=== PATIENT | male | born 1975 | race Caucasian/White ===

== ENCOUNTER 2017-07-20 10:31 | Day surgery (SDC) | payer BC ==
[2017-07-20] MEDS ORDERED: Lidocaine 1% 30 ML SDV ONE (11:16)
[2017-07-20] MEDS ORDERED: Lidocaine 1% with EPINEPHrine 1:100,000 20 ML MDV ONE (11:16)
--- NOTE | 2017-07-20 11:41 | PCM.PREANE ---
Preanesthetic Assessment - Anesthesia/Transfusion/Family Hx Anesthesia History: Prior Anesthesia Without Reaction Family History of Anesthesia Reaction: No Transfusion History: No Prior Transfusion(s) - Review of Systems General: No Symptoms Pulmonary: Cough (Smoker, 1ppd, cough in the morning. ) Cardiovascular: No Symptoms Gastrointestinal: No Symptoms Neurological: No Symptoms Other: Reports: None - Physical Assessment NPO Status Date: 07/19/17 NPO Status Time: 20:00 O2 Sat by Pulse Oximetry: 96 Respiratory Rate: 18 Vital Signs: Last Vital Signs Temp 36.3 C 07/20/17 10:40 Pulse 77 07/20/17 10:40 Resp 18 07/20/17 10:40 BP 147/97 H 07/20/17 10:40 Pulse Ox 96 07/20/17 10:40 Height: 1.96 m Weight: 145.603 kg ASA Class: 2 Mental Status: Alert & Oriented x3 Airway Class: Mallampati = 2 Dentition: Reports: Caries (Worn, poor condition, black/brown in color.) Thyro-Mental Finger Breadths: 3 Mouth Opening Finger Breadths: 3 ROM/Head Extension: Full Lungs: Clear to Auscultation, Normal Respiratory Effort Cardiovascular: Regular Rate, Regular Rhythm - Allergies Allergies/Adverse Reactions: Allergies Allergy/AdvReac Type Severity Reaction Status Date / Time amoxicillin Allergy Nausea and Verified 07/20/17 11:30 Vomiting ciprofloxacin [From Cipro] Allergy Nausea and Verified 07/20/17 11:30 Vomiting ciprofloxacin HCl Allergy Nausea and Verified 07/20/17 11:30 [From Cipro] Vomiting Penicillins Allergy Swollen Verified 07/20/17 11:30 Tongue - Acknowledgements Anesthesia Type Planned: General Anesthesia Pt an Appropriate Candidate for the Planned Anesthesia: Yes Alternatives and Risks of Anesthesia Discussed w Pt/Guardian: Yes Pt/Guardian Understands and Agrees with Anesthesia Plan: Yes PreAnesthesia Questionnaire - Past Health History Medical/Surgical History: Denies Medical/Surgical History - Past Surgical History GI Surgical History: Reports: EGD - SUBSTANCE USE Smoking Status *Q: Current Every Day Smoker Recreational Drug Use History: Yes Recreational Drug Type: Reports: Marijuana/Hashish, Methamphetamine - HOME MEDS Home Medications: Home Meds . [No Known Home Meds] 08/05/14 [History] - CURRENT (IN HOUSE) MEDS Current Meds: Current Medications Discontinued Medications Lidocaine HCl (Xylocaine-Mpf 1%) Confirm Administered Dose 30 ml .ROUTE .STK- MED ONE Stop: 07/20/17 11:17 Lidocaine/Epinephrine (Xylocaine 1% With Epinephrine 1:100,000) Confirm Administered Dose 20 ml .ROUTE .STK-MED ONE Stop: 07/20/17 11:17
[2017-07-20] MEDS ORDERED: Succinylcholine/Normal Saline 100 MG/5 ML Syringe ONE (12:07)
[2017-07-20] MEDS ORDERED: Midazolam 1 MG/ML 2 ML SDV ONE ×2 (12:07→13:08)
[2017-07-20] MEDS ORDERED: fentaNYL 250 MCG/5 ML SDV ONE (12:07)
[2017-07-20] MEDS ORDERED: Lidocaine 1% 4 ML ONE (12:07)
[2017-07-20] MEDS ORDERED: Propofol 200 MG/20 ML SDV ONE ×2 (12:07→12:42)
[2017-07-20] MEDS ORDERED: Lactated Ringers 1,000 ML ONE (12:07)
[2017-07-20] MEDS ORDERED: Ketamine 500 mg/10 ML MDV ONE (12:32)
[2017-07-20] MEDS ORDERED: HYDROmorphone 1 MG/ML Syringe ONE (12:36)
[2017-07-20] MEDS ORDERED: Sodium Chloride 0.9% 10 ML Syringe FLUSH PRN (12:46)
[2017-07-20] MEDS ORDERED: Lidocaine 1%/Sod Bicarbonate in NS 8.4% 1 ML Syringe IDERM PRN (12:46)
[2017-07-20] MEDS ORDERED: Lactated Ringers 1,000 ML IV SCH (13:00)
[2017-07-20] MEDS ORDERED: Albuterol 6.7 GM Inhaler INH ONE (13:07)
--- NOTE | 2017-07-20 13:26 | PCM.POSTAN ---
POST ANESTHESIA ASSESSMENT - MENTAL STATUS Mental Status: Alert - VITAL SIGNS Pulse Rate: 98 SaO2: 100 Resp Rate: 16 Blood Pressure: 137/90 Temperature: 36.8 C - RESPIRATORY Respiratory Status: Respiratory Rate WNL, Airway Patent, O2 Saturation Stable ( despite lots of coughing and secretions ) - CARDIOVASCULAR CV Status: Pulse Rate WNL, Blood Pressure Stable - GASTROINTESTINAL GI Status: No Symptoms - PAIN Pain Score: 7 (treated ) - POST OP HYDRATION Hydration Status: Adequate & Stable
--- NOTE | 2017-07-20 13:54 | PCM.OPNOTE ---
- General Post-Op/Procedure Note Date of Surgery/Procedure: 07/20/17 Operative Procedure(s): excision of lipoma on the back of the neck Pre Op Diagnosis: lipoma back of neck Post-Op Diagnosis: Same Anesthesia Technique: General ET Tube Primary Surgeon: Brendan Florez EBL in mLs: 25 Complications: None Condition: Good
[2017-07-20] MEDS ORDERED: Acetaminophen/HYDROcodone 325-5 MG Tab PO PRN (13:59)
[2017-07-20 15:03] VITALS: BP 157/94
--- NOTE | 2017-07-23 07:41 | OR ---
DATE OF OPERATION: 07/20/2017 SURGEON: Brendan Florez MD PREOPERATIVE DIAGNOSIS: 10 cm lipoma, back of the neck. POSTOPERATIVE DIAGNOSIS: 10 cm lipoma, back of the neck. OPERATION PERFORMED: Excision done under general anesthetic. ESTIMATED BLOOD LOSS: About 25 mL. DESCRIPTION OF PROCEDURE: The patient was taken to the operating room, placed in a supine position, connected to monitoring equipment, given a general anesthetic and intubated. SCDs were placed and the patient was then placed in the left lateral position with an axillary roll. The posterior neck was prepped with Betadine, draped off in a sterile fashion. The skin was anesthetized with 1% Xylocaine. Transverse incision was made, carried down by sharp dissection to lipoma. By sharp dissection, superior and inferior flaps developed, and lipoma was removed and taken off the posterior fascia. Bleeding points were then suture ligated with 3- 0 Vicryl suture. The skin was then trimmed and the deep subcuticular tissue was brought together with interrupted 2-0 Vicryl suture and this was closed over a Aurelio-Reese drain, brought out through a separate stab wound in the incision. The subcuticular tissue was then brought together with a running 3-0 Vicryl suture and amaury were used to approximate the skin. The drain was then closed with 4-0 Prolene suture. Sterile dressing placed. The patient tolerated the procedure and sent to recovery room in a stable condition. ANESTHESIA: ROBERT /[id number]
--- NOTE | 2017-08-08 10:25 | OR ---
DATE OF OPERATION: 07/20/2017 SURGEON: Brendan Florez MD ADDENDUM: A lipoma removed from the neck measured 8 cm across, that would include margin and lesion. MMODAL /[id number]
== END 2017-07-20 15:06 | disposition home or self-care (01) ==
LOC: JD.SDS 10:31
PROVIDERS: ATTEND Surgery
DX: D17.0 Benign lipomatous neoplasm of skin and subcutaneous tissue of head, face and neck (principal); Z88.0 Allergy status to penicillin; Z88.1 Allergy status to other antibiotic agents; F17.210 Nicotine dependence, cigarettes, uncomplicated
CPT/HCPCS: 21552; A9270; J0330; J1170; J2250; J3010; J7120; 00300; J2001; J2704

== ENCOUNTER 2023-10-18 03:04 | Emergency (ER) | payer BC ==
[2023-10-18] MEDS: Ketorolac 60 MG/2 ML SDV IM ONE (03:50)
[2023-10-18] MEDS: Triamcinolone Acetonide 40 MG/ML 1 ML SDV IM ONE (03:51)
[2023-10-18] MEDS: tiZANidine 4 MG Tab PO ONE (03:58)
[2023-10-18 05:04] VITALS: BP 126/74; PULSE 89
== END 2023-10-18 05:00 | disposition home or self-care (01) ==
LOC: JD.ED 03:04
DX: M54.42 Lumbago with sciatica, left side (principal); F17.210 Nicotine dependence, cigarettes, uncomplicated; Z88.0 Allergy status to penicillin; Z88.1 Allergy status to other antibiotic agents
CPT/HCPCS: 96372; 99283; A9270; J1885; J3301; 99284

== ENCOUNTER 2023-10-19 01:27 | Emergency (ER) | payer BC ==
[2023-10-19] MEDS: HYDROmorphone 1 MG/ML Syringe IVPUSH ONE ×2 (02:38→09:10)
[2023-10-19] MEDS: Sodium Chloride 0.9% 10 ML Syringe FLUSH PRN (02:39)
[2023-10-19] MEDS: HYDROmorphone 1 MG/ML Syringe IVPUSH PRN (03:46)
[2023-10-19] MEDS: Ketorolac 30 MG/ML SDV IVPUSH SCH (08:23)
[2023-10-19] MEDS: methylPREDNISolone Sodium Succinate 125 MG/2 ML SDV IVPUSH ONE (08:25)
[2023-10-19] MEDS: Acetaminophen/oxyCODONE 325-5 MG Tab PO ONE (11:13)
[2023-10-19 12:43] VITALS: BP 145/74; PULSE 65
== END 2023-10-19 12:05 | disposition home or self-care (01) ==
LOC: JD.ED 01:27
DX: M51.16 Intervertebral disc disorders with radiculopathy, lumbar region (principal); F17.210 Nicotine dependence, cigarettes, uncomplicated; Z79.899 Other long term (current) drug therapy; Z88.0 Allergy status to penicillin; Z88.1 Allergy status to other antibiotic agents
CPT/HCPCS: 72148; 96372; 96374; 96375; 96376; 99284; A9270; J1170; J1885; J2930; J3360; J3490

== ENCOUNTER 2024-10-15 08:41 | Day surgery (SDC) | payer BC ==
[~2024-10-15 08:41] MED LIST: Sodium Chloride 0.9% 10 ML Syringe FLUSH PRN; Sodium Chloride 0.9% 10 ML Syringe FLUSH SCH
[2024-10-15] MEDS: Lactated Ringers 1,000 ML IV SCH (09:00)
[2024-10-15] MEDS ORDERED: propofoL 500 MG/50 ML 50 ML ONE (10:05)
[2024-10-15] MEDS ORDERED: Lidocaine 1% 4 ML ONE (10:05)
[2024-10-15] MEDS ORDERED: Propofol 200 MG/20 ML SDV ONE (10:30)
[2024-10-15 11:40] VITALS: BP 121/70; PULSE 66
== END 2024-10-15 11:35 | disposition home or self-care (01) ==
LOC: JD.SDS 08:41
PROVIDERS: ATTEND Surgery
DX: Z12.11 Encounter for screening for malignant neoplasm of colon (principal); D12.2 Benign neoplasm of ascending colon; D12.3 Benign neoplasm of transverse colon; K57.30 Diverticulosis of large intestine without perforation or abscess without bleeding; K64.8 Other hemorrhoids; E78.2 Mixed hyperlipidemia; Z79.899 Other long term (current) drug therapy; Z88.0 Allergy status to penicillin; Z88.1 Allergy status to other antibiotic agents
CPT/HCPCS: 45380; J2003; J2704; J7120; 00811